=== PATIENT | female | born 1970 | race Caucasian/White ===

== ENCOUNTER 2020-12-05 17:40 | Inpatient (IN) | payer BC ==
[2020-12-05 20:11] VITALS: BMI 24.1
[2020-12-05] MEDS ORDERED: HYDROcodone/Acetaminophen 5/325 mg Tablet PO PRN (21:15)
[2020-12-05] MEDS ORDERED: Ondansetron PF 4 MG/2 ML Vial IVP PRN ×2 (21:15→21:25)
[2020-12-05] MEDS ORDERED: Ondansetron ODT 4 MG TAB PO PRN ×2 (21:15→21:25)
[2020-12-05] MEDS ORDERED: hydrALAZINE 20 MG/ML VIAL SLOW IVP PRN (21:22)
[2020-12-05] MEDS ORDERED: Acetaminophen 650 MG Suppository PR PRN (21:25)
[2020-12-05] MEDS ORDERED: Acetaminophen 325 MG TAB PO PRN (21:25)
[2020-12-05] MEDS ORDERED: Atorvastatin Calcium 40 MG TAB PO SCH (21:30)
[2020-12-05 22:47] LABS: SARS-CoV-2 NAA Rapid Test Not Detected (NotDetected)
[2020-12-06 05:00] LABS: #Basophils 0.1 thou/uL (0.0-0.2); #Lymphocytes 3.6 thou/uL (1.20-3.40); #Monocytes 1.1 thou/uL (0.11-0.59); #Neutrophils 6.2 thou/uL (1.40-6.50); %Basophils 1.2 % (0.0-1.0); %Eosinophils 0.2 % (0.0-10.0); %Lymphocytes 32.4 % (21.0-51.0); %Monocytes 9.6 % (0.0-10.0); %Neutrophils 56.6 % (42.0-75.0); Hemoglobin 13.1 g/dL (12.0-16.0); Mean Corpuscular HGB CONC 31.9 g/dL (32.0-36.0); Mean Corpuscular Hemoglobin 28.7 pg (27.0-31.0); Mean Platelet Volume 7.4 fL (7.4-10.4); Platelet Count 257 thou/uL (130-400); RBC Distribution Width 12.4 % (11.5-14.5); Red Blood Cell (RBC) Count 4.57 mill/uL (4.20-5.40); White Blood Cell (WBC) Count 10.9 thou/uL (4.8-10.8)
[2020-12-06 05:27] LABS: Anion Gap 11 mmol/L (10-20); BUN (Urea Nitrogen) 12 mg/dL (7.0-18.7); Calc. Creatinine Clearance 88 mL/min (70-130); Calcium 9.4 mg/dL (7.8-10.44); Carbon Dioxide 26 mmol/L (22-29); Chloride 109 mmol/L (98-107); Cholesterol 187 mg/dl (< 200 Desired); Glucose 101 mg/dL (70-105); HDL Cholesterol 47 mg/dL (>60 Neg Risk); LDL Cholesterol, Calculated 122 mg/dL; Potassium 4.5 mmol/L (3.5-5.1); Sodium 141 mmol/L (136-145); Triglycerides 89 mg/dL (Less than 150)
[2020-12-06] MEDS: Acetaminophen 325 MG TAB PO PRN ×4 (05:41→20:51)
[2020-12-06] MEDS ORDERED: Aspirin 81 mg Enteric Coated Tablet PO SCH (09:00)
[2020-12-06] MEDS ORDERED: Enoxaparin Sodium 40 MG/0.4 ML SYRINGE SC SCH (09:00)
[2020-12-06 16:28] LABS: Factor VIII Test 214.2 % ACTIVE (56-157); HEX PHOS LA Tube 1 40.8 SEC; Hexagonal Phospholipid Neut 0.8 SEC (0-8.0); Protein C Activity 113 % (78-152)
[2020-12-06 16:49] LABS: D-Dimer Test 0.27 *mcg/mL (0.27-0.43); PTT 27.6 sec (22.9-36.1); Prothrombin Time 12.9 sec (12.0-14.7)
[2020-12-06] MEDS ORDERED: Progesterone,Micronized 100 MG CAP PO SCH (21:00)
[2020-12-06] MEDS ORDERED: Atorvastatin Calcium 40 MG TAB PO SCH (21:00)
[2020-12-07 08:22] VITALS: TEMP 97.7
[2020-12-07] MEDS ORDERED: Aspirin 325 MG TAB PO SCH (09:00)
[2020-12-07] MEDS: Acetaminophen 325 MG TAB PO PRN (09:11)
[2020-12-07 10:32] VITALS: BP 117/74
[2020-12-09 17:32] LABS: Cardiolipin IgA Ab 3.8 APL-U/mL (<14 Negative); Cardiolipin IgG Ab Less than 0.5 GPL-U/mL (<10 Negative); EliA APS New Method **** NEW METHOD ****
== END 2020-12-07 11:15 | disposition home or self-care (01) | DRG 65 ==
LOC: 2SW 19:50 → OBSVTOIN 19:50
PROVIDERS: ADMIT Internal Medicine; ATTEND Internal Medicine
DX: I63.89 Other cerebral infarction (principal); G81.91 Hemiplegia, unspecified affecting right dominant side; Z20.822 Contact with and (suspected) exposure to COVID-19; R47.81 Slurred speech; R00.1 Bradycardia, unspecified; R29.700 NIHSS score 0; H53.8 Other visual disturbances; Z79.899 Other long term (current) drug therapy; Z90.710 Acquired absence of both cervix and uterus; Z82.49 Family history of ischemic heart disease and other diseases of the circulatory system; Z82.3 Family history of stroke
CPT/HCPCS: 36415; 70551; 80048; 80061; 82607; 82746; 83090; 83735; 84443; 85025; 85240; 85300; 85303; 85305; 85307; 85379; 85598; 85610; 85730; 86147; G0378; U0002; U0005